=== PATIENT | female | born 1990 | race Caucasian/White ===

== ENCOUNTER → 2019-11-25 14:00 | Outpatient (CLI) | payer OTHER, MEDICAID, SELFPAY ==
--- NOTE | 2019-11-25 | DI.US.S_ITS ---
PROCEDURE: US OB >= 14 WEEKS FETUS INDICATIONS: ANATOMY SCAN OUTSIDE/PRIOR DATING DATA: Last menstrual period (LMP): 07/14/19. LMP-based estimated date of delivery (KRYSTAL): 04/19/20. First dating scan (date and location): 11/25/19. Estimated date of delivery (KRYSTAL) from first dating scan: 04/14/20. TECHNIQUE: Real-time scanning was performed of the fetus, with image documentation and biometric measurements. Endovaginal scanning: Not performed COMPARISON: None. FINDINGS: General: A single living intrauterine gestation is present. Presentation: Breech. Placenta: Placental position is anterior, without previa. Lower placental edge 2 cm or less from internal cervical os qualifies as low lying placenta. Amniotic fluid index: 10.9 cm, normal range is 5-24 cm. heart rate: 145 beats per minute. Maternal cervical canal: 2.8 cm long. Normal lower limit is 2.5 cm. Maternal ovaries were not visualized on today's study. biometrics: Biparietal diameter: 4.6 cm, correlating with 20 weeks and 0 days Head circumference: 18.1 cm, correlating with 20 weeks and 3 days Abdominal circumference: 14.3 cm, correlating with 19 weeks and 4 days Femur length: 3.1 cm, correlating with 19 weeks and 4 days Estimated gestational age from initial scan: not applicable. Composite gestational age from present scan: 19 weeks and 6 days Estimated weight and percentile: 307 g correlating with approximately the 77th percentile based off gestational age. Measurement variability for biometric dating: +/- 7 days from 14 weeks to 15 weeks 6 days gestation, +/- 10 days from 16 weeks to 21 weeks 6 days gestation, +/- 2 weeks from 22 weeks to 27 weeks 6 days gestation, +/- 3 weeks for 28 weeks gestation or later. weight reference: 4500 g or EFW >90/95% is considered macrosomia or large for gestational age. EFW <10% is small for gestational age. EFW 5% or less is considered intra-uterine growth restriction. Anatomic survey: Neuro: Ventricles are non-dilated at less than 10 mm. Cisterna magna is normal at 3-11 mm. Cerebellum is normal in size and morphology. Nuchal skin fold: Normal at less than 6 mm between 14-21 weeks gestational age. Face: Nose and lips, facial profile are normal. Spine: No evidence for spina bifida. Heart: 4-chambered heart is present, with normal ventricular outflow tracts. Diaphragm: Diaphragm is intact. Stomach: Left-sided stomach is present. Kidneys: No hydronephrosis. Normal is less than 5 mm in 2nd trimester, less than 7 mm in 3rd trimester. Cord: 3-vessel cord has orthotopic insertion. Bladder: Normal in size. Extremities: All 4 extremities identified. IMPRESSION: Single living intrauterine gestation with an estimated sonographic gestational age of approximately 19 weeks and 6 days. Estimated weight of approximately 307 g which correlates with the 77th percentile based off gestational age. Normal routine second trimester anatomic screening survey. Dictated by: Inderjit Cage M.D. on 11/25/2019 at 15:33 Approved by: Inderjit Cage M.D. on 11/25/2019 at 15:36
== END ==
PROVIDERS: PCP Physician Assistant; Referring Provider Nurse Practitioner Obstetrics & Gynecology; Visit Provider Nurse Practitioner Obstetrics & Gynecology
DX: Z36.89 Encounter for other specified antenatal screening (principal); Z3A.19 19 weeks gestation of pregnancy
CPT/HCPCS: 76811

== ENCOUNTER → 2019-12-24 09:23 | Outpatient (CLI) | payer OTHER, SELFPAY ==
--- NOTE | 2019-12-24 | DI.US.S_ITS ---
PROCEDURE: US OB LIMITED INDICATIONS: CERVICAL LENGTH OUTSIDE/PRIOR DATING DATA: Last menstrual period (LMP): 07/14/2019. LMP-based estimated date of delivery (KRYSTAL): 04/19/2020. First dating scan (date and location): 11/25/2019 at . Estimated date of delivery (KRYSTAL) from first dating scan: 04/14/2020. TECHNIQUE: Real-time scanning was performed of the fetus, with image documentation and biometric measurements. Biophysical profile was also obtained. Endovaginal scanning: Not performed COMPARISON: [facility], OB >= 14 WEEKS FETUS, 11/25/2019, 14:15. FINDINGS: General: A single living intrauterine gestation is present. Presentation: Vertex. Placenta: Placental position is anterior, without previa; largest pocket 4.4 cm. Amniotic fluid index: 13.9 cm, normal range is 5-24 cm. heart rate: 143 beats per minute. Maternal cervical canal: 4.2 cm long. Normal lower limit is 2.5 cm. biometrics: Not performed. Estimated gestational age from initial scan: 24 weeks 0 day. IMPRESSION: 1. A single living intrauterine gestation is redemonstrated. 2. The cervix is closed measuring 4.2 cm. Dictated by: Alissa Anton M.D. on 12/24/2019 at 10:12 Approved by: Alissa Anton M.D. on 12/24/2019 at 10:16
== END ==
PROVIDERS: PCP Physician Assistant; Referring Provider Physician Assistant; Visit Provider Nurse Practitioner Obstetrics & Gynecology
DX: O34.42 Maternal care for other abnormalities of cervix, second trimester (principal); Z3A.24 24 weeks gestation of pregnancy
CPT/HCPCS: 76815

== ENCOUNTER → 2020-01-03 07:49 | Outpatient (CLI) | payer OTHER, MEDICAID, SELFPAY ==
[2020-01-03 09:16] LABS: Hematocrit 34.5 % (36-46); Hemoglobin 11.9 g/dL (12.0-16.0); Mean Corpuscular HGB Conc 34.5 % (30-36); Mean Corpuscular Hemoglobin 30.3 PG (26-34); Mean Corpuscular Volume 87.8 fL (80-100); Platelet Count 194 X10^3/uL (150-400); Red Blood Cell Count 3.93 X10^6/uL (4.0-5.2); Red Cell Distribution Width 12.9 % (11.6-14.8); White Blood Cell Count 11.1 X10^3/uL (4.5-11.0)
[2020-01-03 09:39] LABS: Glucose Fasting 67 mg/dL (70-100)
[2020-01-03 10:21] LABS: Glucose Tol Interpretation INTERPRETATION
[2020-01-03 11:29] LABS: Glucose 1 Hour 84 mg/dL (70-170)
[2020-01-03 12:12] LABS: Glucose 2 Hour 72 mg/dL (70-140)
== END ==
PROVIDERS: PCP Physician Assistant; Referring Provider Nurse Practitioner Obstetrics & Gynecology; Visit Provider Nurse Practitioner Obstetrics & Gynecology
DX: Z34.90 Encounter for supervision of normal pregnancy, unspecified, unspecified trimester (principal); Z13.1 Encounter for screening for diabetes mellitus; Z3A.26 26 weeks gestation of pregnancy
CPT/HCPCS: 36415; 82951; 82952; 85027

== ENCOUNTER → 2020-01-14 10:52 | Outpatient (CLI) | payer OTHER, MEDICAID, SELFPAY ==
--- NOTE | 2020-01-14 13:35 | DI.US.S_ITS ---
ULTRASOUND OF RIGHT AXILLA: 01/14/2020 CLINICAL: Axillary fullness Lt>Rt. No prior exams were available for comparison. Real-time ultrasound of the right axilla was performed. Smith scale images of the real-time examination were reviewed. No significant abnormalities were seen sonographically in the right axilla. IMPRESSION: NEGATIVE There is no sonographic evidence of suspicious mass, lipoma, or adenopathy. Follow up with clinician for any further changes. Findings and recommendations were conveyed to the patient at time of exam. This exam was interpreted at Station ID: [id number]. Electronically Signed By: Fransisca luevano/:01/15/2020 17:32:21 letter sent: Normal Exam Ultrasound BI-RADS: 1 Negative
--- NOTE | 2020-01-14 13:36 | DI.US.S_ITS ---
ULTRASOUND OF LEFT AXILLA: 01/14/2020 CLINICAL: Axillary fullness Lt>Rt. No prior exams were available for comparison. Real-time ultrasound of the left axilla was performed. Smith scale images of the real-time examination were reviewed. No significant abnormalities were seen sonographically in the left axilla. IMPRESSION: NEGATIVE There is no sonographic evidence of malignancy, lipoma, or adenopathy. Clinical follow up for any changes. Findings and recommendations were conveyed to the patient at time of exam. This exam was interpreted at Station ID: [id number]. Electronically Signed By: Fransisca luevano/:01/15/2020 17:34:12 Ultrasound BI-RADS: 1 Negative
== END ==
PROVIDERS: PCP Physician Assistant; Referring Provider Nurse Practitioner Obstetrics & Gynecology; Visit Provider Nurse Practitioner Obstetrics & Gynecology
DX: R22.33 Localized swelling, mass and lump, upper limb, bilateral (principal)
CPT/HCPCS: 76882

== ENCOUNTER → 2020-03-16 12:52 | Outpatient (ROUT) | payer OTHER, MEDICAID, SELFPAY ==
[2020-03-17 14:32] LABS: Strep Grp B PCR NEG for Grp B Strep
== END ==
PROVIDERS: PCP Physician Assistant; Visit Provider Nurse Practitioner Obstetrics & Gynecology
DX: Z34.90 Encounter for supervision of normal pregnancy, unspecified, unspecified trimester (principal); Z36.85 Encounter for antenatal screening for Streptococcus B; Z3A.36 36 weeks gestation of pregnancy
CPT/HCPCS: 87653

== ENCOUNTER 2020-04-19 11:28 | Inpatient (IN) | payer OTHER, MEDICAID, SELFPAY ==
--- NOTE | 2020-04-19 12:00 | P.HPOB_ITS ---
OB HPI Date/Time Date of admission: 04/19/20 Date Patient Seen: 04/19/20 Time Patient Seen: 11:45 History of Present Condition Chief complaint: OBS : 2 Para: 0 Estimated Date of Delivery: 04/13/20 Estimated Gestational Age (weeks): 40.6 Narrative: Nikky Goff is a 30 year old female @ [id number] by 8 week US who presents for evaluation of PROM. Large gush ofclear fluid @ 0300 that continued to leak all night, but has decreased in quantity. +FM. No contractions or vaginal bleeding. Uncomplicated PN care w/ CNM. History of Present care: good care, initiated at week # (8), number of visits (12) and pounds weight gain (30) Dating criteria: based on 1st trimester US only Ultrasounds: normal mid trimester US Obstetrical complications: none Medical complications: cardiovascular (pacemake/defibrilator in place w/ no underlying cardiac condition) Preadmission Labs Blood type: O (+) positive -: Antibody screen: negative, Cystic fibrosis screen: negative, GBS status: ne gative, HBsAG: negative, HIV: negative and RPR/VDLR: negative -: Chlamydia screen: not detected and Gonorrhea screen: not detected -: Rubella: immune HCT: 34.5 HCAB: negative Cell-free DNA: negative/male 3 hr GTT: 2 hr (67/84/72) Prior (ies) History: 02/28/14- Elective @ 6 wks Evaluation Evaluation Baseline heart rate: 145 Variability: Moderate (11-25) monitor accelerations: Present monitor decelerations: Absent Contraction Frequency (minutes): 12 Uterine Contraction Intensity: Mild Category of Tracing: Reactive Comments: CE deferred for PROM. Recent CE 04/13/20: 1.5cm/70%/-2, posterior, medium PFSH Medical History (Updated 04/19/20 @ 12:14 by Arminda Su CNM) Anxiety (Acute) BN (bulimia nervosa) (Acute) Pacemaker (Acute) Surgical History (Updated 04/19/20 @ 12:15 by Arminda Su CNM) H/O bilateral breast reduction surgery (Acute) History of bunionectomy (Acute) History of tonsillectomy (Acute) Status post bunionectomy (10/10/15) Family History (Updated 04/19/20 @ 12:15 by Arminda Su CNM) Father Hypertension Social History (Updated 04/19/20 @ 12:16 by Arminda Su CNM) marital status: details: lives with new , Alfredo, and his daughter number of children: 1 household members: spouse and children lives independently: Yes caregiver/support person: No housing: house occupational status: employed Meds Home Medications and Allergies Home Medications Medication Instructions Recorded Confirmed Type no.144-folic acid 2 mcg PO 04/19/20 History [] Allergies Allergy/AdvReac Type Severity Reaction Status Date / Time acetaminophen [From VICODIN] Allergy Unknown Unverified 11/08/17 11:47 amoxicillin [AMOXICILLIN] Allergy Unknown Unverified 11/08/17 11:47 hydrocodone [From VICODIN] Allergy Unknown Unverified 11/08/17 11:47 morphine [MORPHINE] Allergy Unknown Unverified 11/08/17 11:47 Penicillins [PENICILLINS] Allergy Unknown Unverified 11/08/17 11:47 Review of Systems Review of Systems ROS: Yes All systems reviewed with the patient and are negative except as otherwise documented Exam Vital Signs (past 8 hours): BP 126/77, HR87, T97.4F Temporal Presentation: vertex Amniotic Fluid: clear Other: gross SROM Assessment and Plan Assessment and Plan Assessment and Plan narrative: Term primipara, PROM @ 40.6wks, No indication for GBS prophylaxis, Cat I FHR P: Counseled on active vs expectant management of PROM. Pt elects active management at this time. Admit, routine orders w/ cervical ripening w/ misopro stil likely x2 doses. Labor support PRN. Will notify anesthesia of patient admission and cardiac history. OB back-up/ notified of patient admission, status and plan of care. Reassess in 8 hours or sooner, PRN. Time Spent with Patient Total time spent with greater than 50% in coordination of care (as documented) at patient's floor/unit and/or counseling patient:: 15-24 minutes
[2020-04-19] MEDS: miSOPROStoL 25 MCG TABLET 50 MCG PO ×2 (12:07→16:05)
[2020-04-19 12:36] LABS: COVID19 -Nasal RAPID Negative (Negative)
[2020-04-19 13:13] VITALS: BP 126/77
[2020-04-19 18:43] LABS: Add Manual Diff / Slide Review NO; Basophils Absolute Auto 100 /uL (0-100); Basophils Percent Auto 0.6 % (0-2); Eosinophils Absolute Auto 100 /uL (0-450); Eosinophils Percent Auto 0.6 % (2-4); Hematocrit 35.1 % (36-46); Hemoglobin 11.8 g/dL (12.0-16.0); Lymphocytes Absolute Auto 1700 /uL (1100-4500); Lymphocytes Percent Auto 13.5 % (25-40); Mean Corpuscular HGB Conc 33.7 % (30-36); Mean Corpuscular Volume 83.1 fL (80-100); Monocytes Absolute Auto 700 /uL (0-900); Monocytes Percent Auto 6.1 % (3-14); Neutrophils Absolute Auto 9700 /uL (1500-7000); Neutrophils Percent Auto 79.2 % (50-75); Platelet Count 184 X10^3/uL (150-400); Red Blood Cell Count 4.23 X10^6/uL (4.0-5.2); Red Cell Distribution Width 14.6 % (11.6-14.8); White Blood Cell Count 12.3 X10^3/uL (4.5-11.0)
--- NOTE | 2020-04-19 20:00 | PM.OBPNLAB ---
Date/Time Date Patient Seen: 04/19/20 Time Patient Seen: 19:00 Pain Control Pain control: tolerating well Comments: Breathing through strong contractions for 2 hours, coping well. VS: BP 120/80, [id number], T36.9C Temporal Pelvic Exam Dilation (cm): 4 Effacement (%): 90 station: -2 Amniotic membrane status: Leaking (clear) Contractions Contractions on admission: irregular Monitor mode: External Pitocin rate (mU/min): 0 Contraction frequency (min): 3 Contraction duration (min): 1 Contraction pattern: Regular Contraction intensity: Moderate Status status: Category l Heart Rate Baseline: 160 Comments: regular w/ no decreases by intermittent auscultation Assessment and Plan Assessment: active labor Plan: continuous present management Comments: Patient appears to be approaching active labor. Will hold interventions at this time. Labor support PRN. Reassess in 4 hours or sooner, PRN.
[2020-04-19] MEDS: LACTATED RINGERS 1,000 ML 100 ML IV ×2 (22:30→23:53)
--- NOTE | 2020-04-19 22:33 | PM.OBPNLAB ---
Date/Time Date Patient Seen: 04/19/20 Time Patient Seen: 10:25 Pain Control Comments: Patient has been laboring well in the tub, now requesting epidural. Pelvic Exam Dilation (cm): 5 Effacement (%): 90 station: 0 Amniotic membrane status: Leaking (clear) Comments: clear fluid Contractions Monitor mode: External Pitocin rate (mU/min): 0 Contraction frequency (min): 3 Contraction duration (min): 1 Contraction pattern: Regular Contraction intensity: Moderate Status status: Category l Heart Rate Baseline: 135 Comments: reassuring by intermittent auscultation, regular rate with no decreases. Assessment and Plan Assessment: active labor Plan: continuous present management Comments: Anesthesia called for epidural. Continuous labor support until epidural placed. Continuous EFM once epidural placed. Reassess in 4 hours or sooner, PRN.
--- NOTE | 2020-04-20 04:23 | PM.OBPRVD ---
Labor & Delivery Delivery date: 04/20/20 Intrapartal events: None Cervical ripening method: per misoprostal protocol Induction method: none Delivery monitor: external FHT and external uterine Route of delivery: L&D Laceration Description: Vaginal - 1st Degree Delivery repair: chromic (3.0) Anesthesia type: Epidural [place] Baby 1: gender: Male Presentation: vertex Placenta delivery description: Spontaneous cord vessel description: 3 Vessels score (1 min): 8 score (5 min): 9 Narrative: Patient began to feel increasing rectal pressure, received an epidural bolus and was examined and found to be C/C/+2. NSVB of a vigorous baby boy in GOLDIE position w/ a single loose NC and easy delivery of the shoulders. [place] was placed on maternal chest for drying and skin to skin w/ a long cord noted. After cessation of pulsation, the cord was double clamped by CNM and cut by FOB. Hospital cord blood hold sample was collected. Gentle cord traction and single maternal push led to spontaneous, Schultze delivery of an apparently intact placenta, membranes and 3VC. Fundus massaged firm and bleeding minimal. Inspection revealed a 1st degree vaginal laceration the extended up the left internal labia. This was repaired w/ 3.0 Chromic in the usual fashion under good epidural anesthesia. QBL 150mL. Both mother and baby stable and skin to skin as I left the room.
[2020-04-20] MEDS: PRENATAL VIT,CALC/IRON/FOLIC 1 TABLET 1 TAB PO (08:14)
[2020-04-20] MEDS: IBUPROFEN 600 MG TABLET PO (08:15)
[2020-04-20] MEDS: DOCUSATE 100 MG CAPSULE PO (08:16)
[2020-04-20] MEDS: DERMOPLAST SPRAY 20% 60 ML 1 SPRAY TOP (08:16)
--- NOTE | 2020-04-20 11:19 | PM.OBDS.1 ---
Discharge Providers Provider Date of admission: 04/19/20 11:28 Discharge Date: 04/20/20 Primary care physician: Janie Grant PA-C Consults: 04/21/20 04:18 Consult to Water Treatment Plant Engineer Routine Comment: Discharge provider: Arminda Su CNM Summary Discharge Diagnosis (1) First degree perineal laceration during delivery: Status: Acute Problem Details: Patient sitting up in bed, feeling well, eager for discharge to home. Voiding and ambulating independently. well, no breast tenderness. Tolerating general diet. Minimal pain well controlled w/ ibuprofen and Tylenol. is present and supportive. Time Spent with Patient Time attestation: Total time spent providing and/or coordinating discharge services: Objective Labs Result Diagrams: 04/19/20 18:35 Labs: Laboratory Results - last 24 hr 04/19/20 04/19/20 04/19/20 11:55 18:35 18:35 WBC 12.3 H RBC 4.23 Hgb 11.8 L Hct 35.1 L MCV 83.1 MCH 28.0 MCHC 33.7 RDW 14.6 Plt Count 184 Neut % (Auto) 79.2 H Lymph % (Auto) 13.5 L Ponce % (Auto) 6.1 Eos % (Auto) 0.6 L Baso % (Auto) 0.6 Neut # (Auto) 9700 H Lymph # (Auto) 1700 Ponce # (Auto) 700 Eos # (Auto) 100 Baso # (Auto) 100 COVID-19 PCR Negative Blood Type O Positive Antibody Screen Negative Exam Vital Signs (past 8 hours): BP 107/70, [id number], RR14/min, T99.1F Temporal Other: Fundus firm @ u-1, lochia light, no clots Psych Appearance: grossly normal Affect: normal affect Discharge Plan Discharge Plan Patient Disposition: Home Discharge orders & Medications Prescriptions: New ibuprofen 600 mg Tablet 600 mg PO Q6HR PRN (Reason: Pain, Mild (1-3)) 14 Days Qty: 60 RF: 1 docusate sodium [DOK] 100 mg Capsule 100 mg PO DAILY 7 Days Qty: 10 RF: 0 Continued 400 mcg Tablet,Chewable 2 mcg PO DIRECTED RF: 0 Follow up/Referrals: Janie Grant PA-C [Primary Care Provider] - Arminda Su CNM [Advanced Financial Administrator] - (Follow-up @ 2wks postpartumm by Telehealth 05/04/20@1pm Follow-up @ 6 wks in office 06/01/20@1pm) Diet/Activity/Treatments Diet: Regular Activity: pelvic rest x6 weeks Skin/Wound/Dressing Care Report to your healthcare provider any signs of infection, such as:: chills, fever, increased pain, unusual drainage and unusual redness Visit Report/Discharge Packet Instructions: DI for Depression Discharge Data Primary Care Provider: Janie Grant
[2020-04-20 11:49] VITALS: BP 110/68; PULSE 80; RESP 15; TEMP 37.2
== END 2020-04-20 13:00 | disposition home or self-care (01) | DRG 560 ==
PROVIDERS: Admitting Provider Nurse Practitioner Obstetrics & Gynecology; PCP Physician Assistant; Referring Provider Nurse Practitioner Obstetrics & Gynecology; Visit Provider Nurse Practitioner Obstetrics & Gynecology
DX: O42.02 Full-term premature rupture of membranes, onset of labor within 24 hours of rupture (principal); O70.0 First degree perineal laceration during delivery; Z3A.40 40 weeks gestation of pregnancy; Z37.0 Single live birth; Z95.0 Presence of cardiac pacemaker; Z11.59 Encounter for screening for other viral diseases
CPT/HCPCS: 01967; 59050; 85025; 86850; 86900; 86901; 87635; G0379

== ENCOUNTER → 2021-10-04 12:12 | Outpatient (CLI) | payer OTHER, MEDICAID, SELFPAY ==
--- NOTE | 2021-10-04 12:15 | DI.US.S_ITS ---
PROCEDURE: US OB >= 14 WEEKS FETUS INDICATIONS: ANATOMY SCAN OUTSIDE/PRIOR DATING DATA: Last menstrual period (LMP): May 15, 2021. LMP-based estimated date of delivery (KRYSTAL): February 19, 2022. First dating scan (date and location): October 04, 2021. Estimated date of delivery (KRYSTAL) from first dating scan: February 17, 2022. TECHNIQUE: Real-time scanning was performed of the fetus, with image documentation and biometric measurements. COMPARISON: [facility], OB >= 14 WEEKS FETUS, 11/25/2019, 14:15. FINDINGS: General: A single living intrauterine gestation is present. Presentation: Transverse. Placenta: Placental position is anterior , without previa. Amniotic fluid index: 13.7 cm, normal range is 5-24 cm. Single deepest vertical pocket is 4.1 cm. heart rate: 147 beats per minute. Maternal cervical canal: 4.4 cm long. Normal lower limit is 2.5 cm. biometrics: Biparietal diameter: 4.7 cm Head circumference: 18.3 cm Abdominal circumference: 15.4 cm Femur length: 3.4 cm Composite gestational age from present scan: 20 weeks, 4 days Estimated weight and percentile: 362 g +/-54 g; 61% Anatomic survey: Neuro: Ventricles are non-dilated at less than 10 mm. Cisterna magna is normal at 3-11 mm. Cerebellum is normal in size and morphology. Nuchal skin fold: Normal at less than 6 mm between 14-21 weeks gestational age. Face: Nose and lips, facial profile are normal. Spine: No evidence for spina bifida. Heart: 4-chambered heart is present, with normal ventricular outflow tracts. Diaphragm: Diaphragm is intact. Stomach: Left-sided stomach is present. Kidneys: No hydronephrosis. Normal is less than 5 mm in 2nd trimester, less than 7 mm in 3rd trimester. Cord: 3-vessel cord has orthotopic insertion. Bladder: Normal in size. Extremities: All 4 extremities identified. IMPRESSION: Single live intrauterine gestation. We strive to produce accurate, complete, and clear reports of imaging services. To assist us in improving patient care, this report was composed using standard report templates and voice recognition software. Therefore, it may contain abnormal punctuation, insertions and/or omissions. Occasional wrong-word or sound-alike substitutions may occur. Though we review the report and make efforts to correct it, we do recommend that the report be read carefully in proper context to recognize any text inaccuracies. Dictated by: Rashi Pete M.D. on 10/04/2021 at 15:45 Approved by: Rashi Pete M.D. on 10/04/2021 at 15:47
== END ==
PROVIDERS: PCP Nurse Practitioner Obstetrics & Gynecology; Referring Provider Nurse Practitioner Obstetrics & Gynecology; Visit Provider Nurse Practitioner Obstetrics & Gynecology
DX: Z36.89 Encounter for other specified antenatal screening (principal); Z3A.20 20 weeks gestation of pregnancy
CPT/HCPCS: 76811

== ENCOUNTER → 2022-01-26 17:02 | Outpatient (ROUT) | payer OTHER, MEDICAID, SELFPAY | PROVIDERS: PCP Nurse Practitioner Obstetrics & Gynecology; Visit Provider Nurse Practitioner Obstetrics & Gynecology | DX: Z34.90 Encounter for supervision of normal pregnancy, unspecified, unspecified trimester (principal); Z36.85 Encounter for antenatal screening for Streptococcus B; Z3A.36 36 weeks gestation of pregnancy | CPT/HCPCS: 87081 ==

== ENCOUNTER 2022-06-11 13:13 | Emergency (ER) | payer OTHER, MEDICAID, SELFPAY ==
[2022-06-11 13:17] VITALS: BP 133/69; PULSE 93; RESP 15; TEMP 36.1; O2SAT 99; BMI 30.9
--- NOTE | 2022-06-11 13:20 | DI.RAD.S_ITS ---
PROCEDURE: XR CHEST 1V INDICATIONS: chest pain TECHNIQUE: One view of the chest was acquired. COMPARISON: None. FINDINGS: Surgical changes and devices: Left-sided cardiac pacer device is in place. Lungs and pleura: Patchy right basilar airspace opacities. No pneumothorax or pleural effusion. Mediastinum: Mediastinal contours appear normal. Heart size is normal. Bones and chest wall: No suspicious bony lesions. Overlying soft tissues appear unremarkable. IMPRESSION: Patchy right basilar airspace opacities likely representing pneumonia. Recommend follow up chest radiograph 4-6 weeks after treatment to document resolution of findings and/or return to baseline examination. Dictated by: Inderjit Cage M.D. on 06/11/2022 at 14:14 Approved by: Inderjit Cage M.D. on 06/11/2022 at 14:16
[2022-06-11 13:56] LABS: INR 1.1 (0.9-1.3); Prothrombin Time 12.3 SECONDS (10.1-12.7)
[2022-06-11 13:57] LABS: Add Manual Diff / Slide Review NO; Basophils Absolute Auto 100 /uL (0-100); Basophils Percent Auto 0.8 % (0-2); Eosinophils Absolute Auto 200 /uL (0-450); Eosinophils Percent Auto 2.6 % (2-4); Hemoglobin 11.7 g/dL (12.0-16.0); Lymphocytes Absolute Auto 2100 /uL (1100-4500); Lymphocytes Percent Auto 27.7 % (25-40); Mean Corpuscular HGB Conc 34.4 % (30-36); Mean Corpuscular Hemoglobin 28.1 PG (26-34); Mean Corpuscular Volume 81.6 fL (80-100); Monocytes Absolute Auto 800 /uL (0-900); Monocytes Percent Auto 10.4 % (3-14); Neutrophils Absolute Auto 4400 /uL (1500-7000); Neutrophils Percent Auto 58.5 % (50-75); Platelet Count 322 X10^3/uL (150-400); Red Blood Cell Count 4.17 X10^6/uL (4.0-5.2); Red Cell Distribution Width 14.6 % (11.6-14.8); White Blood Cell Count 7.4 X10^3/uL (4.5-11.0)
[2022-06-11 13:59] LABS: PTT Partial Thromboplastin Tim 29 SECONDS (26-36)
[2022-06-11 14:01] LABS: Alanine Aminotransferase 17 IU/L (<35); Albumin 4.1 g/dL (3.5-5.0); Albumin Globulin Ratio 1.1 (1.0-2.8); Alkaline Phosphatase 67 U/L (38-126); Aspartate Aminotransferase 16 IU/L (14-36); BUN Creatinine Ratio 17.7 (6-22); Bilirubin Total 0.4 mg/dL (0.2-1.3); Blood Urea Nitrogen 11 mg/dL (7-17); Calcium 9.1 mg/dL (8.4-10.2); Carbon Dioxide 29 mmol/L (22-32); Chloride 103 mmol/L (98-107); Creatine Kinase 28 U/L (30-135); Estimated Glomerular Filt Rate > 60 mL/min (>60); Globulin 3.6 g/dL (1.7-4.1); Glucose 99 mg/dL (70-100); HEMOLYSIS < 15 (0-50); Lipase 67 U/L (23-300); Magnesium 2.2 mg/dL (1.6-2.3); Potassium 3.8 mmol/L (3.4-5.1); Sodium 141 mmol/L (137-145); Total Protein 7.7 g/dL (6.3-8.2)
[2022-06-11 14:12] LABS: Troponin I < 0.012 ng/mL (0.01-0.034)
[2022-06-11 14:39] LABS: Influenza A - CEPHEID Flu A NEGATIVE (NEGATIVE); Influenza B - CEPHEID Flu B NEGATIVE (NEGATIVE); Respiratory Syncytial Virus Negative (Negative)
[2022-06-11 14:42] LABS: COVID-19 CEPHEID 4-PLEX PCR Negative (Negative)
--- NOTE | 2022-06-11 15:01 | PC.NURSE ---
assessment and dc done by provider. provider gave incentive spirometer instructions as well. vitals not repeated becasue provider assessed and discharged pt from waiting room.
--- NOTE | 2022-06-11 17:13 | ED_ITS ---
HPI - Chest Pain <LEX Chu - Last Filed: 06/11/22 17:34> General Chief Complaint: Chest Pain Stated Complaint: pain on lt side under rib cage had Pacemaker, t-1 Time Seen by Provider: 06/11/22 14:31 Source: patient Mode of arrival: Ambulatory Limitations: no limitations History of Present Illness HPI narrative: This is a 32-year-old female with history of a pacemaker, recent vaginal delivery of a healthy 3-month-old who she is slowly. She presents to the emergency department for left sided rib pain and a productive cough over the last 2 weeks. She denies fever or chills but states that she is had a productive cough, pain with deep inspiration, she denies any fever, chills, wheezing, or history of lung problems. She states that she had an upper respira tory infection last week, thought she got better for a few days and then has been having ongoing cough and feeling poorly. Related Data Home Medications Medication Instructions Recorded Confirmed vitamins no.144-folic 2 mcg PO DIRECTED 04/19/20 04/19/20 acid 400 mcg chewable tablet () Previous Rx's Medication Instructions Recorded ibuprofen 600 mg tablet 600 mg PO Q6HR PRN Pain, Mild 04/20/20 (1-3) 14 days #60 tabs azithromycin 250 mg tablet See Rx Instructions PO .COMPLEX #6 06/11/22 tabs cetirizine 10 mg tablet (Zyrtec) 10 mg PO DAILY PRN congest #30 tabs 06/11/22 doxycycline hyclate 100 mg tablet 100 mg PO BID 5 days #10 tabs 06/11/22 guaifenesin 400 mg tablet 400 mg PO TID PRN productive cough 06/11/22 #20 tabs Allergies Allergy/AdvReac Type Severity Reaction Status Date / Time amoxicillin [AMOXICILLIN] Allergy Intermediate Rash Verified 06/11/22 13:17 hydrocodone [From VICODIN] Allergy Intermediate rash, N/V Verified 06/11/22 13:17 morphine [MORPHINE] Allergy Intermediate rash, body Verified 06/11/22 13:17 swelling Penicillins [PENICILLINS] Allergy Intermediate Rash Verified 06/11/22 13:17 acetaminophen [From VICODIN] AdvReac Intermediate rash, N/V Verified 06/11/22 13:17 Review of Systems <LEX Chu - Last Filed: 06/11/22 17:34> Review of Systems Narrative: Review of systems is negative for acute abnormalities unless otherwise noted in HPI Patient History <LEX Chu - Last Filed: 06/11/22 17:34> Medical History Anxiety BN (bulimia nervosa) Pacemaker Surgical History H/O bilateral breast reduction surgery History of bunionectomy History of tonsillectomy Status post bunionectomy (10/10/15) Family History Father Hypertension Social History marital status: details: lives with new , Alfredo, and his daughter number of children: 1 household members: spouse and children lives independently: Yes caregiver/support person: No housing: house occupational status: employed Smoking Status: Never smoker Smoking Status: Never smoker alcohol intake frequency: holidays/special occasions only Substance Use Type: does not use Exam <LEX Chu - Last Filed: 06/11/22 17:34> Narrative Exam Narrative: Reviewed vitals signs and nursing notes. General: cooperative, comfortable, in no acute distress, well groomed, afebrile HEENT: symmetrical facial expressions, moist mucous membranes Cardiovascular: regular rate and rhythm, no peripheral edema, warm extremities Respiratory: normal effort, able to speak in complete sentences, without wheezing, stridor, retractions, tachypnea. Diminished breath sounds to left lower base, crackles to right lower lobe anteriorly and posteriorly, diminished breath sounds to right middle lobe, otherwise with good air movement. GI: abdomen soft, nontender to palpation, nondistended, without masses, rebound tenderness or exquisite tenderness with exam. MSK: moves all extremities, neurovascularly intact, no weakness, normal tone Skin: brisk capillary refill, without pallor or erythema Neuro: normal speech and cognition, A&O x3, ambulatory, clear speech Psych: mental status is grossly normal, congruent mood, normal affect, pleasant and cooperative Initial Vital Signs Initial Vital Signs: Vital Signs Temperature 97.0 F L 06/11/22 13:17 Pulse Rate 93 H 06/11/22 13:17 Respiratory Rate 15 06/11/22 13:17 Blood Pressure 133/69 06/11/22 13:17 Pulse Oximetry 99 06/11/22 13:17 Oxygen Delivery Method 06/11/22 13:17 <Aide Isbell MD - Last Filed: 06/12/22 18:35> Initial Vital Signs Initial Vital Signs: Vital Signs Temperature 97.0 F L 06/11/22 13:17 Pulse Rate 93 H 06/11/22 13:17 Respiratory Rate 15 06/11/22 13:17 Blood Pressure 133/69 06/11/22 13:17 Pulse Oximetry 99 06/11/22 13:17 Oxygen Delivery Method 06/11/22 13:17 Course <LEX Chu - Last Filed: 06/11/22 17:34> Orders Ordered: ED Orders 06/11/22 13:20 XR chest 1V Stat Covid-19 + FLU A/B + RSV - PCR Stat 06/11/22 13:31 EKG-12 Lead Stat 06/11/22 13:40 Complete Blood Count AUTO DIFF Stat Comprehensive Metabolic Panel Stat Lipase Stat Magnesium Stat Partial Thromboplastin Time Stat Prothrombin Time INR Stat Troponin & CK Cardiac Panel Stat Vital Signs Vital signs: Vital Signs - 8 hr 06/11/22 13:17 Temperature 97.0 F L Pulse Rate 93 H Respiratory Rate 15 Blood Pressure 133/69 Pulse Oximetry 99 Oxygen Delivery Method Room Air <Aide Isbell MD - Last Filed: 06/12/22 18:35> Orders Ordered: ED Orders 06/11/22 13:20 XR chest 1V Stat Covid-19 + FLU A/B + RSV - PCR Stat 06/11/22 13:31 EKG-12 Lead Stat 06/11/22 13:40 Complete Blood Count AUTO DIFF Stat Comprehensive Metabolic Panel Stat Lipase Stat Magnesium Stat Partial Thromboplastin Time Stat Prothrombin Time INR Stat Troponin & CK Cardiac Panel Stat Vital Signs Vital signs: Vital Signs - 8 hr 06/11/22 13:17 Temperature 97.0 F L Pulse Rate 93 H Respiratory Rate 15 Blood Pressure 133/69 Pulse Oximetry 99 Oxygen Delivery Method Room Air MDM - Chest Pain <Lubna Macias [facility] - Last Filed: 06/11/22 17:34> Lab Data Result diagrams: 06/11/22 13:40 06/11/22 13:40 Labs: Lab Results 06/11/22 06/11/22 06/11/22 Range/Units 13:20 13:40 13:40 WBC 7.4 (4.5-11.0) X10^3/uL RBC 4.17 (4.0-5.2) X10^6/uL Hgb 11.7 L (12.0-16.0) g/dL Hct 34.0 L (36-46) % MCV 81.6 (80-100) fL MCH 28.1 (26-34) PG MCHC 34.4 (30-36) % RDW 14.6 (11.6-14.8) % Plt Count 322 (150-400) X10^3/uL Neut % (Auto) 58.5 (50-75) % Lymph % (Auto) 27.7 (25-40) % [place] % (Auto) 10.4 (3-14) % Eos % (Auto) 2.6 (2-4) % Baso % (Auto) 0.8 (0-2) % Neut # (Auto) 4400 (1164-4520) /uL Lymph # (Auto) 2100 (1177-6617) /uL [place] # (Auto) 800 (0-900) /uL Eos # (Auto) 200 (0-450) /uL Baso # (Auto) 100 (0-100) /uL PT 12.3 (10.1-12.7) SECONDS INR 1.1 (0.9-1.3) APTT 29 (26-36) SECONDS Sodium (137-145) mmol/L Potassium (3.4-5.1) mmol/L Chloride (98-107) mmol/L Carbon Dioxide (22-32) mmol/L BUN (7-17) mg/dL Creatinine (0.52-1.04) mg/dL Estimated GFR (>60) mL/min BUN/Creatinine Ratio (6-22) Glucose (70-100) mg/dL Calcium (8.4-10.2) mg/dL Magnesium (1.6-2.3) mg/dL Total Bilirubin (0.2-1.3) mg/dL AST (14-36) IU/L ALT (<35) IU/L Alkaline Phosphatase (38-126) U/L Total Creatine Kinase (30-135) U/L CK-MB (CK-2) CK-MB (CK-2) Rel Index Troponin I (0.01-0.034) ng/mL Total Protein (6.3-8.2) g/dL Albumin (3.5-5.0) g/dL Globulin (1.7-4.1) g/dL Albumin/Globulin Ratio (1.0-2.8) Lipase (23-300) U/L SARS-CoV-2 (PCR) Negative (Negative) Influenza A (RT-PCR) Flu a negative (NEGATIVE) Influenza B (RT-PCR) Flu b negative (NEGATIVE) RSV (PCR) Negative (Negative) 06/11/22 Range/Units 13:40 WBC (4.5-11.0) X10^3/uL RBC (4.0-5.2) X10^6/uL Hgb (12.0-16.0) g/dL Hct (36-46) % MCV (80-100) fL MCH (26-34) PG MCHC (30-36) % RDW (11.6-14.8) % Plt Count (150-400) X10^3/uL Neut % (Auto) (50-75) % Lymph % (Auto) (25-40) % [place] % (Auto) (3-14) % Eos % (Auto) (2-4) % Baso % (Auto) (0-2) % Neut # (Auto) (3544-1109) /uL Lymph # (Auto) (0201-0116) /uL [place] # (Auto) (0-900) /uL Eos # (Auto) (0-450) /uL Baso # (Auto) (0-100) /uL PT (10.1-12.7) SECONDS INR (0.9-1.3) APTT (26-36) SECONDS Sodium 141 (137-145) mmol/L Potassium 3.8 (3.4-5.1) mmol/L Chloride 103 (98-107) mmol/L Carbon Dioxide 29 (22-32) mmol/L BUN 11 (7-17) mg/dL Creatinine 0.62 (0.52-1.04) mg/dL Estimated GFR > 60 (>60) mL/min BUN/Creatinine Ratio 17.7 (6-22) Glucose 99 (70-100) mg/dL Calcium 9.1 (8.4-10.2) mg/dL Magnesium 2.2 (1.6-2.3) mg/dL Total Bilirubin 0.4 (0.2-1.3) mg/dL AST 16 (14-36) IU/L ALT 17 (<35) IU/L Alkaline Phosphatase 67 (38-126) U/L Total Creatine Kinase 28 L (30-135) U/L CK-MB (CK-2) TNP CK-MB (CK-2) Rel Index TNP Troponin I < 0.012 (0.01-0.034) ng/mL Total Protein 7.7 (6.3-8.2) g/dL Albumin 4.1 (3.5-5.0) g/dL Globulin 3.6 (1.7-4.1) g/dL Albumin/Globulin Ratio 1.1 (1.0-2.8) Lipase 67 (23-300) U/L SARS-CoV-2 (PCR) (Negative) Influenza A (RT-PCR) (NEGATIVE) Influenza B (RT-PCR) (NEGATIVE) RSV (PCR) (Negative) Imaging Data Chest x-ray: Radiologist's Impression: PROCEDURE:? XR CHEST 1V ? INDICATIONS:? chest pain ? TECHNIQUE:? One view of the chest was acquired.? ? COMPARISON:? None. ? FINDINGS:? ? Surgical changes and devices:? Left-sided cardiac pacer device is in place.? ? Lungs and pleura:? Patchy right basilar airspace opacities.? No pneumothorax or pleural effusion. ? Mediastinum:? Mediastinal contours appear normal.? Heart size is normal.? ? Bones and chest wall:? No suspicious bony lesions.? Overlying soft tissues appear unremarkable.? ? IMPRESSION:? Patchy right basilar airspace opacities likely representing pneumonia. ? Recommend follow up chest radiograph 4-6 weeks after treatment to document resolution of findings and/or return to baseline examination. ? ? ? Dictated by: Inderjit Cage M.D. on 06/11/2022 at 14:14 ? ? Approved by: Inderjit Cage M.D. on 06/11/2022 at 14:16 ? [facility] Narrative Medical decision making narrative: This is a 32-year-old female with history of pacemaker, delivery of a 40 week gestation healthy infant 3 months ago and is currently who presents to the emergency department with a cough for the last 2 weeks, she got better for a few days and then started feeling worse again about 3 days ago. She is had a productive cough, without fever but endorses chills and breathing shallow. She has some left-sided rib pain which she was concerned about today, is reproducible with deep inspiration and palpation. Her chest x-ray is positive for patchy right basilar airspace opacities likely representing pneumonia, this is consistent with her exam with crackles to her right lower lobe and diminished breath sounds to the right middle lobe. No pneumothorax, pleural effusion, heart size appears normal. Left-sided pacemaker is in place. Patient wishes to continue , she has anaphylactic allergy to amoxicillin, penicillins, and hydrocodone. Her lab work does not show leukocytosis or end-organ damage, her COVID, influenza and RSV tests were negative, otherwise her labs are unremarkable with a mild anemia with hemoglobin of 11.7 and hematocrit of 34.0, these are consistent with her priors. Opted to treat her with azithromycin x5 days, and doxycycline if she wishes to use this while for 5 days. Gave her prescription of cetirizine, guaifenesin, encouraged ibuprofen, hydration, and Tylenol as needed for pain. 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 Encourage patient to alternate with formula if she needs to she came try starting with azithromycin to see if this helps her get better and have a repeat x-ray by her primary care provider to see if this is clearing. Patient states understanding, will follow-up accordingly. She understands strict return precautions. Patient is appropriate and amenable to discharge home. Vital signs are stable on repeat examination is unremarkable. Patient has been informed of results. Patient has been given strict return to ER precautions for any new or worsening symptoms. Patient understands to follow up closely with outpatient providers as instructed. Patient understands plan and agrees to discharge home. All questions and concerns answered at this time. <Aide Isbell MD - Last Filed: 06/12/22 18:35> Lab Data Labs: Lab Results 06/11/22 06/11/22 06/11/22 Range/Units 13:20 13:40 13:40 WBC 7.4 (4.5-11.0) X10^3/uL RBC 4.17 (4.0-5.2) X10^6/uL Hgb 11.7 L (12.0-16.0) g/dL Hct 34.0 L (36-46) % MCV 81.6 (80-100) fL MCH 28.1 (26-34) PG MCHC 34.4 (30-36) % RDW 14.6 (11.6-14.8) % Plt Count 322 (150-400) X10^3/uL Neut % (Auto) 58.5 (50-75) % Lymph % (Auto) 27.7 (25-40) % [place] % (Auto) 10.4 (3-14) % Eos % (Auto) 2.6 (2-4) % Baso % (Auto) 0.8 (0-2) % Neut # (Auto) 4400 (0135-7388) /uL Lymph # (Auto) 2100 (7331-9632) /uL [place] # (Auto) 800 (0-900) /uL Eos # (Auto) 200 (0-450) /uL Baso # (Auto) 100 (0-100) /uL PT 12.3 (10.1-12.7) SECONDS INR 1.1 (0.9-1.3) APTT 29 (26-36) SECONDS Sodium (137-145) mmol/L Potassium (3.4-5.1) mmol/L Chloride (98-107) mmol/L Carbon Dioxide (22-32) mmol/L BUN (7-17) mg/dL Creatinine (0.52-1.04) mg/dL Estimated GFR (>60) mL/min BUN/Creatinine Ratio (6-22) Glucose (70-100) mg/dL Calcium (8.4-10.2) mg/dL Magnesium (1.6-2.3) mg/dL Total Bilirubin (0.2-1.3) mg/dL AST (14-36) IU/L ALT (<35) IU/L Alkaline Phosphatase (38-126) U/L Total Creatine Kinase (30-135) U/L CK-MB (CK-2) CK-MB (CK-2) Rel Index Troponin I (0.01-0.034) ng/mL Total Protein (6.3-8.2) g/dL Albumin (3.5-5.0) g/dL Globulin (1.7-4.1) g/dL Albumin/Globulin Ratio (1.0-2.8) Lipase (23-300) U/L SARS-CoV-2 (PCR) Negative (Negative) Influenza A (RT-PCR) Flu a negative (NEGATIVE) Influenza B (RT-PCR) Flu b negative (NEGATIVE) RSV (PCR) Negative (Negative) 06/11/22 Range/Units 13:40 WBC (4.5-11.0) X10^3/uL RBC (4.0-5.2) X10^6/uL Hgb (12.0-16.0) g/dL Hct (36-46) % MCV (80-100) fL MCH (26-34) PG MCHC (30-36) % RDW (11.6-14.8) % Plt Count (150-400) X10^3/uL Neut % (Auto) (50-75) % Lymph % (Auto) (25-40) % [place] % (Auto) (3-14) % Eos % (Auto) (2-4) % Baso % (Auto) (0-2) % Neut # (Auto) (8653-0300) /uL Lymph # (Auto) (0319-0832) /uL [place] # (Auto) (0-900) /uL Eos # (Auto) (0-450) /uL Baso # (Auto) (0-100) /uL PT (10.1-12.7) SECONDS INR (0.9-1.3) APTT (26-36) SECONDS Sodium 141 (137-145) mmol/L Potassium 3.8 (3.4-5.1) mmol/L Chloride 103 (98-107) mmol/L Carbon Dioxide 29 (22-32) mmol/L BUN 11 (7-17) mg/dL Creatinine 0.62 (0.52-1.04) mg/dL Estimated GFR > 60 (>60) mL/min BUN/Creatinine Ratio 17.7 (6-22) Glucose 99 (70-100) mg/dL Calcium 9.1 (8.4-10.2) mg/dL Magnesium 2.2 (1.6-2.3) mg/dL Total Bilirubin 0.4 (0.2-1.3) mg/dL AST 16 (14-36) IU/L ALT 17 (<35) IU/L Alkaline Phosphatase 67 (38-126) U/L Total Creatine Kinase 28 L (30-135) U/L CK-MB (CK-2) TNP CK-MB (CK-2) Rel Index TNP Troponin I < 0.012 (0.01-0.034) ng/mL Total Protein 7.7 (6.3-8.2) g/dL Albumin 4.1 (3.5-5.0) g/dL Globulin 3.6 (1.7-4.1) g/dL Albumin/Globulin Ratio 1.1 (1.0-2.8) Lipase 67 (23-300) U/L SARS-CoV-2 (PCR) (Negative) Influenza A (RT-PCR) (NEGATIVE) Influenza B (RT-PCR) (NEGATIVE) RSV (PCR) (Negative) Discharge Plan Departure Patient Disposition: Home Clinical Impression: Pneumonia Qualifiers: Pneumonia type: due to unspecified organism Laterality: right Lung location: lower lobe of lung Qualified Code(s): J18.9 - Pneumonia, unspecified organism Instructions: Pneumonia-Adult Activity Restrictions/Additional Instructions: *You have been diagnosed with right lower lobe pneumonia. I have prescribed for you azithromycin which is safe , Zyrtec and Mucinex. I recommend taking doxycycline twice a day in conjunction with the azithromycin for recommended treatment of community-acquired pneumonia. There is risk of transmission through breast milk. I would encourage you to use formula intermittently, the risk is for discoloration to growing teeth in the baby, possible thrush, or diarrhea from the antibiotic. It should not be dangerous however, I hope that you feel better soon practice deep breathing and coughing as needed. Follow-up with your primary care provider as needed, will send your chart to her. Stay hydrated, you can use Tylenol and ibuprofen as needed for your pain. *What to do: *Please continue to take your regular medications as directed. [x ] New medication prescriptions sent to your pharmacy: [ [facility]] [ ] New medication written as a paper prescription [ ] No new medications given *Please follow up with your primary care provider in 2-3 days, call for an appointment. Let them know you were seen in the Emergency Department and that we asked that you be seen for follow-up. We will electronically transmit a record of today's note if your PCP is in our system *If you do not have a primary care provider please contact [phone] to establish care with one of the [facility] primary care providers. *Return to Emergency Department if you should have any new, worsening, or concerning symptoms, such as [fever greater than 101F, chills, worsening pain, persistent vomiting or other bothersome symptoms]. Prescriptions: New azithromycin 250 mg tablet See Rx Instructions .ROUTE .COMPLEX Qty: 6 0RF Rx Instructions: For 250 mg dose pack: take 500 mg today (day 1), then 250 mg for 4 days (days 2-5) doxycycline hyclate 100 mg tablet 100 mg PO BID 5 Days Qty: 10 0RF cetirizine [Zyrtec] 10 mg tablet 10 mg PO DAILY PRN (Reason: congest) Qty: 30 0RF guaifenesin 400 mg tablet 400 mg PO TID PRN (Reason: productive cough) Qty: 20 0RF No Action 400 mcg Tablet,Chewable 2 mcg PO DIRECTED ibuprofen 600 mg Tablet 600 mg PO Q6HR PRN (Reason: Pain, Mild (1-3)) 14 Days Qty: 60 1RF Referrals: Arminda Lucio CNM [Primary Care Provider] - Visit Report Forms: Patient Portal/API <Aide Isbell MD - Last Filed: 06/12/22 18:35> Cosign ED Attending Bethature Attestation: I was immediately available in the department for consultation throughout this patient's visit. I agree with documentation as above. Aide Isbell MD
== END 2022-06-11 15:02 | disposition home or self-care (01) ==
PROVIDERS: Emergency Medicine; Emergency Provider Nurse Practitioner Critical Care Medicine; PCP Nurse Practitioner Obstetrics & Gynecology
DX: J18.9 Pneumonia, unspecified organism (principal); R07.9 Chest pain, unspecified; R05.9 Cough, unspecified; Z95.0 Presence of cardiac pacemaker; Z20.822 Contact with and (suspected) exposure to COVID-19
CPT/HCPCS: 0241U; 71045; 80053; 82550; 83690; 83735; 84484; 85025; 85610; 85730; 93005; 99283; 99284

== ENCOUNTER 2022-06-12 23:40 | Emergency (ER) | payer OTHER, MEDICAID, SELFPAY ==
[2022-06-12 23:48] VITALS: BP 140/87; PULSE 97; RESP 14; TEMP 36.9; O2SAT 99; BMI 30.9
--- NOTE | 2022-06-12 23:57 | ED.CHESTPAIN ---
HPI - Chest Pain General Chief Complaint: Chest Pain Stated Complaint: chest pain Time Seen by Provider: 06/12/22 23:42 Source: patient Mode of arrival: Ambulatory Limitations: no limitations History of Present Illness HPI narrative: 32-year-old female who is seen here in the emergency department yesterday and diagnosed with pneumonia. Was prescribed antibiotics. His but is currently dumping her pumped breast milk because of the antibiotics who is here for evaluation of left-sided chest wall discomfort. Earlier this afternoon she coughed, felt a ?pop? and then started have fairly localized left-sided chest discomfort. Is worse with palpation and taking a deep breath and movement. Related Data Home Medications Medication Instructions Recorded Confirmed vitamins no.144-folic 2 mcg PO DIRECTED 04/19/20 04/19/20 acid 400 mcg chewable tablet () Previous Rx's Medication Instructions Recorded ibuprofen 600 mg tablet 600 mg PO Q6HR PRN Pain, Mild 04/20/20 (1-3) 14 days #60 tabs azithromycin 250 mg tablet See Rx Instructions PO .COMPLEX #6 06/11/22 tabs cetirizine 10 mg tablet (Zyrtec) 10 mg PO DAILY PRN congest #30 tabs 06/11/22 doxycycline hyclate 100 mg tablet 100 mg PO BID 5 days #10 tabs 06/11/22 guaifenesin 400 mg tablet 400 mg PO TID PRN productive cough 06/11/22 #20 tabs Allergies Allergy/AdvReac Type Severity Reaction Status Date / Time amoxicillin [AMOXICILLIN] Allergy Intermediate Rash Verified 06/11/22 13:17 hydrocodone [From VICODIN] Allergy Intermediate rash, N/V Verified 06/11/22 13:17 morphine [MORPHINE] Allergy Intermediate rash, body Verified 06/11/22 13:17 swelling Penicillins [PENICILLINS] Allergy Intermediate Rash Verified 06/11/22 13:17 acetaminophen [From VICODIN] AdvReac Intermediate rash, N/V Verified 06/11/22 13:17 Review of Systems Constitutional Constitutional: Reports system reviewed and no additional complaints, except as documented Respiratory Respiratory: Reports system reviewed and no additional complaints, except as documented Integumentary/Breasts Skin/Breast: Reports system reviewed and no additional complaints, except as documented Neurologic Neurologic: Reports system reviewed and no additional complaints, except as documented Patient History Medical History Anxiety BN (bulimia nervosa) Pacemaker Surgical History H/O bilateral breast reduction surgery History of bunionectomy History of tonsillectomy Status post bunionectomy (10/10/15) Family History Father Hypertension Social History marital status: details: lives with new , Alfredo, and his daughter number of children: 1 household members: spouse and children lives independently: Yes caregiver/support person: No housing: house occupational status: employed Smoking Status: Never smoker Smoking Status: Never smoker alcohol intake frequency: holidays/special occasions only Substance Use Type: does not use Exam Initial Vital Signs Initial Vital Signs: Vital Signs Temperature 98.4 F 06/12/22 23:48 Pulse Rate 97 H 06/12/22 23:48 Respiratory Rate 14 06/12/22 23:48 Blood Pressure 140/87 06/12/22 23:48 Pulse Oximetry 99 06/12/22 23:48 Oxygen Delivery Method 06/12/22 23:48 HENMT Head: normal to inspection and normocephalic Chest Chest: No crepitus and tenderness (Left-sided anterior and lateral mid rib pain.) Resp Effort & Inspection: normal respiratory effort Auscultation: clear to auscultation bilaterally Skin General: no rashes or lesions noted Neuro General: patient alert and patient awake Course Orders Ordered: Discontinued Medications Cyclobenzaprine HCl (Cyclobenzaprine 10 Mg Prepack) 1 bottle [facility] Stop: 06/12/22 23:58 Last Admin: 06/13/22 00:03 Dose: 1 bottle Vital Signs Vital signs: Vital Signs - 8 hr 06/12/22 23:48 Temperature 98.4 F Pulse Rate 97 H Respiratory Rate 14 Blood Pressure 140/87 Pulse Oximetry 99 Oxygen Delivery Method Room Air MDM - Chest Pain MDM Narrative Medical decision making narrative: His relatively pinpoint tenderness to palpation along the intercostal space between the 3rd and 4th rib spaces where the 4th and 5th ribs spaces. Lungs are clear. No skin changes. I do suspect intercostal muscle spasm. No indication for radiologic studies. Was sent home with muscle relaxers and she can continue to dump her pumped breast milk. She was given return precautions. She expressed understanding and agreement. Discharge Plan Departure Patient Disposition: Home Clinical Impression: Left-sided chest wall pain Activity Restrictions/Additional Instructions: Continue to take all the antibiotics as directed. You were given a prepack the muscle relaxer. In general this medication is considered acceptable in . It is an as-needed medicine. Return to the emergency department for any new symptoms. Prescriptions: No Action 400 mcg Tablet,Chewable 2 mcg PO DIRECTED ibuprofen 600 mg Tablet 600 mg PO Q6HR PRN (Reason: Pain, Mild (1-3)) 14 Days Qty: 60 1RF azithromycin 250 mg tablet See Rx Instructions .ROUTE .COMPLEX Qty: 6 0RF Rx Instructions: For 250 mg dose pack: take 500 mg today (day 1), then 250 mg for 4 days (days 2-5) doxycycline hyclate 100 mg tablet 100 mg PO BID 5 Days Qty: 10 0RF cetirizine [Zyrtec] 10 mg tablet 10 mg PO DAILY PRN (Reason: congest) Qty: 30 0RF guaifenesin 400 mg tablet 400 mg PO TID PRN (Reason: productive cough) Qty: 20 0RF Referrals: Arminda Lucio CNM [Primary Care Provider] -
[2022-06-13] MEDS: CYCLOBENZAPRINE 10 MG PREPACK 1 BOTTLE MISC (00:03)
[2022-06-13 00:06] VITALS: RESP 16; O2SAT 98
== END 2022-06-13 00:07 | disposition home or self-care (01) ==
PROVIDERS: Emergency Provider Emergency Medicine; PCP Nurse Practitioner Obstetrics & Gynecology
DX: R07.89 Other chest pain (principal)
CPT/HCPCS: 99281; 99283